=== PATIENT | female | born 1985 | race Two or more races ===

== ENCOUNTER 2021-02-04 19:55 | Emergency (ER) | payer OTHER ==
[2021-02-04 20:21] VITALS: BMI 40.7
[2021-02-04] MEDS ORDERED: SODIUM PHOSPHATE/NA BIPHOS 133 ML ENEMA PR ONE (21:18)
[2021-02-05 02:34] VITALS: BP 115/72; PULSE 87; TEMP 97.5
== END 2021-02-05 02:39 | disposition home or self-care (01) ==
LOC: JER 19:55
DX: K59.00 Constipation, unspecified (principal)
CPT/HCPCS: 74018-TC-FY; 99284-25